=== PATIENT | female | born 1965 | race Caucasian/White ===

== ENCOUNTER 2021-01-10 18:52 | Outpatient (REF) | payer OTHER, SELFPAY ==
[2021-01-10 22:10] LABS: Hemoglobin A1C 5.3 % (<5.7)
[2021-01-10 22:12] LABS: ALT 24 U/L (14-59); AST 13 U/L (15-37); Albumin 3.8 g/dL (3.4-5.0); Alkaline Phosphatase 99 U/L (46-116); Anion Gap 4.6 mmol/L (3-11); BUN 20 mg/dL (7-18); Bilirubin, Total 0.2 mg/dL (0.2-1.0); CO2 32.4 mmol/L (21.0-32.0); Calcium 9.1 mg/dL (8.5-10.1); Calculated LDL 160 mg/dL (<100); Chloride 107 mmol/L (98-107); Cholesterol 240 mg/dL (<200); Estimated GFR 57.56 (mL/min/1.73m2); Glucose 84 mg/dL (74-106); HDL Cholesterol 55 mg/dL (40-60); Potassium 4.1 mmol/L (3.5-5.1); Sodium 144 mmol/L (136-145); Total Protein 7.2 g/dL (6.4-8.2); Triglyceride 125 mg/dL (<150)
[2021-01-14 11:34] LABS: Hepatitis C Ab w Rflx HCV PCR Negative (Negative)
== END 2021-01-10 18:53 | disposition home or self-care (01) ==
LOC: NCHCN 18:52
PROVIDERS: Visit Provider Nurse Practitioner Family
DX: Z13.1 Encounter for screening for diabetes mellitus (principal); Z13.6 Encounter for screening for cardiovascular disorders; Z11.59 Encounter for screening for other viral diseases; Z13.220 Encounter for screening for lipoid disorders; I10 Essential (primary) hypertension
CPT/HCPCS: 80053; 80061; 86803; 83036

== ENCOUNTER 2022-06-02 14:11 | Outpatient (REF) | payer BC, SELFPAY ==
[2022-06-02 16:05] LABS: Hemoglobin A1C 5.4 % (<5.7)
[2022-06-02 16:36] LABS: Anion Gap 7.8 mmol/L (3-11); BUN 14 mg/dL (7-18); CO2 26.2 mmol/L (21.0-32.0); Calcium 9.1 mg/dL (8.5-10.1); Calculated LDL 112 mg/dL (<100); Chloride 106 mmol/L (98-107); Cholesterol 184 mg/dL (<200); Estimated GFR 66.12 (mL/min/1.73m2); Glucose 95 mg/dL (74-106); HDL Cholesterol 55 mg/dL (40-60); Sodium 140 mmol/L (136-145); Triglyceride 86 mg/dL (<150)
== END 2022-06-02 14:12 | disposition home or self-care (01) ==
LOC: NCHCN 14:11
PROVIDERS: PCP Nurse Practitioner Family; Visit Provider Nurse Practitioner Family
DX: I10 Essential (primary) hypertension (principal); Z13.220 Encounter for screening for lipoid disorders; Z13.1 Encounter for screening for diabetes mellitus; E66.8 Other obesity
CPT/HCPCS: 80048; 80061; 83036